=== PATIENT | female | born 2000 | race Two or more races ===

== ENCOUNTER 2023-02-16 09:47 | Emergency (ER) | payer OTHER ==
[~2023-02-16] VITALS: Ht 172.7 cm; Wt 65.8 kg
== END 2023-02-16 10:56 | disposition home or self-care (01) ==
LOC: ER 09:47
DX: K64.8 Other hemorrhoids (principal)

== ENCOUNTER 2023-12-14 23:13 | Emergency (ER) | payer OTHER ==
[~2023-12-14] VITALS: Ht 172.7 cm; Wt 62.6 kg
== END 2023-12-15 01:11 | disposition home or self-care (01) ==
LOC: ER 23:14
DX: K64.4 Residual hemorrhoidal skin tags (principal)